=== PATIENT | male | born 2000 | race Caucasian/White ===

== ENCOUNTER 2021-06-01 15:56 | Emergency (ER) | payer MEDICAID ==
[~2021-06-01] VITALS: Ht 177.8 cm; Wt 91.0 kg
[2021-06-01] MEDS ORDERED: ONDANSETRON HCL 4MG/2ML INJ IV STA (16:36)
[2021-06-01] MEDS ORDERED: LEVETIRACETAM 1000MG PREMIX 100 ML IV ONE (16:45)
[2021-06-01] MEDS ORDERED: SODIUM CHLORIDE 0.9% 1,000 ML IV ONE (16:45)
[2021-06-01 17:06] LABS: HEMOGLOBIN. 14.3 g/dL (14.0-18.0); MEAN CORPUSCULAR VOLUME 84.1 fL (80.0-94.0); MEAN PLATELET VOLUME 10.3 fl (7.4-10.4); PLATELET 158 x1000/uL (130-400); RED BLOOD CELL COUNT 5.48 mill/uL (4.7-6.1); RED CELL DISTRIBUTION WIDTH 14.5 % (11.6-14.6)
[2021-06-01 17:14] LABS: CHLORIDE 108 mEq/L (98-107)
[2021-06-01 17:17] LABS: ETHANOL BLOOD < 10 mg/dL
[2021-06-01 17:41] LABS: PLATELET ESTIMATE NORMAL
[2021-06-01] MEDS ORDERED: MORPHINE SULFATE 4 MG/ML CPJ (NOT FOR IM USE) IV ONE (17:45)
[2021-06-01] MEDS ORDERED: MORPHINE SULFATE 2 MG/ML CPJ (NOT FOR IM USE) IV NR (17:45)
[2021-06-01] MEDS ORDERED: KEPP500 MT (19:14)
[2021-06-01] MEDS ORDERED: MAGNESIUM/ALUMINUM HYDROXIDE/SIMETHICONE 30ML UDC PO ONE (19:30)
[2021-06-01 19:39] VITALS: BP 125/84
[2021-06-01] MEDS ORDERED: ONDANSETRON 4MG ODT PO ONE (20:00)
== END 2021-06-01 20:08 | disposition home or self-care (01) ==
LOC: ER 15:56
DX: R56.9 Unspecified convulsions (principal); F12.10 Cannabis abuse, uncomplicated; J45.909 Unspecified asthma, uncomplicated
CPT/HCPCS: 36415; 70450; 73060; 80053; 80320; 82962; 85025; 96365; 96375; 99285; J1953; J2270; J7030; Q0162; A4565; G0480

== ENCOUNTER 2021-06-19 15:34 | Emergency (ER) | payer MEDICAID ==
[~2021-06-19] VITALS: Ht 172.7 cm; Wt 85.0 kg
[~2021-06-19 15:34] MED LIST: KEPP500 MT
[2021-06-19] MEDS ORDERED: LEVETIRACETAM 500MG PREMIX 100 ML IV ONE (16:00)
[2021-06-19] MEDS ORDERED: ONDANSETRON HCL 4MG/2ML INJ IV ONE (16:00)
[2021-06-19] MEDS ORDERED: SODIUM CHLORIDE 0.9% 1,000 ML IV ONE (16:00)
[2021-06-19] MEDS ORDERED: LORAZEPAM 2MG/ML CPJ IV PRN (16:00)
[2021-06-19 16:58] LABS: HEMATOCRIT. 36.1 % (42.0-52.0); HEMOGLOBIN. 11.8 g/dL (14.0-18.0); MEAN CORPUSCULAR HEMOGLOBIN 27.3 pg (28.0-32.0); MEAN CORPUSCULAR VOLUME 83.4 fL (80.0-94.0); MEAN PLATELET VOLUME 9.8 fl (7.4-10.4); PLATELET 213 x1000/uL (130-400); RED BLOOD CELL COUNT 4.34 mill/uL (4.7-6.1); RED CELL DISTRIBUTION WIDTH 14.3 % (11.6-14.6)
[2021-06-19 17:04] LABS: CHLORIDE 105 mEq/L (98-107)
[2021-06-19 17:09] LABS: ETHANOL BLOOD < 10 mg/dL
[2021-06-19 17:34] LABS: PLATELET ESTIMATE NORMAL
[2021-06-19] MEDS ORDERED: MORPHINE SULFATE 4 MG/ML CPJ (NOT FOR IM USE) IV ONE (18:45)
[2021-06-19] MEDS ORDERED: MORPHINE SULFATE 2 MG/ML CPJ (NOT FOR IM USE) IV NR (19:00)
[2021-06-19 19:30] VITALS: BP 129/83
== END 2021-06-19 20:13 | disposition home or self-care (01) ==
LOC: ER 15:34
DX: G40.909 Epilepsy, unspecified, not intractable, without status epilepticus (principal); J45.909 Unspecified asthma, uncomplicated; F12.10 Cannabis abuse, uncomplicated; Z91.14 Patient's other noncompliance with medication regimen
CPT/HCPCS: 36415; 80053; 80320; 85025; 93005; 96361; 96365; 96375; 99284; J1953; J2060; J2270; J2405; J7030; G0480